=== PATIENT | male | born 1990 | race Caucasian/White ===

== ENCOUNTER 2019-10-19 01:00 | Inpatient (IN) ==
[2019-10-19] MEDS ORDERED: SODIUM CHLORIDE 0.9% 1,000 ML IV STA ×3 (04:25→08:42)
[2019-10-19 05:33] LABS: Basophils % 0.6 % (0.0-0.8); Eosinophils % 0.4 % (0.00-10.9); Hematocrit 23.4 VOL% (42.0-52.0); Hemoglobin 8.3 GM/DL (14.0-18.0); Immature Granulocytes % 0.2 %; Immature Granulocytes Absolute 0.01 #; Lymphocytes # 1.9 10*3/uL (1.4-4.0); Lymphocytes % 35.8 % (21.2-54.2); Mean Corpuscular HGB Conc 35.5 GM/DL (32-36); Mean Corpuscular Volume 100.9 FL (87-102); Mean Platelet Volume 10.2 FL (9.6-12.0); Monocytes % 13.6 % (1.7-12.7); Neutrophils % 49.4 % (38.7-73.9); Platelet Count 222 T/CUMM (130-400); Red Blood Count 2.32 MC/CUMM (3.8-5.5); Red Cell Distribution Width 11.9 % (9.3-17.3); White Blood Count 5.3 T/CUMM (4-12)
[2019-10-19 06:12] LABS: Alanine Aminotransferase 19 U/L (16-61); Albumin 3.6 G/DL (3.4-5.0); Alkaline Phosphatase 67 U/L (45-117); Aspartate Amino Transferase 18 U/L (0-37); Blood Urea Nitrogen 114 MG/DL (7-18); Calcium 8.2 MG/DL (8.5-10.1); Estimated Glom Filtration Rate 8 ML/MIN; Glucose 92 MG/DL (74-106); Osmolality,Calculated 292.1 MOS/KG (273-304)
[2019-10-19 06:30] LABS: Apearance,Urine CLEAR (Clear); Bilirubin,Urine Negative (Negative); Blood, Urine Negative (Negative); Glucose,Urine (UA) Negative (Negative); Ketones,Urine Negative (Negative); Mucus,Urine Occasional /LPF (Occasional); Nitrite,Urine Negative (Negative); Protein,Urine 30 MG/DL; RBC,Urine 2 /HPF (0-4); Urine Color Straw (Yellow); Urine Specific Gravity 1.009 (1.001-1.035); Urine Urobilinogen < 2.0 EU/DL (0.2-1.0); WBC,Urine 2 /HPF (0-6)
[2019-10-19] MEDS ORDERED: PIPERACILLIN/TAZOBACTAM 3,375 MG in SODIUM CHLORIDE 0.9% 100 ML IV STA (07:17)
[2019-10-19 07:57] LABS: Barbiturates Screen,Urine Negative (Negative); Benzodiazepines Screen,Urine Negative (Negative); Cannabinoid Screen,Urine Negative (Negative); Opiate Screen,Urine Negative (Negative); Phencyclidine Screen,Urine Negative (Negative)
[2019-10-19] MEDS ORDERED: ACETAMINOPHEN 325 MG TABLET PO PRN (08:23)
[2019-10-19] MEDS ORDERED: ONDANSETRON 4 MG/2 ML VIAL IV PRN (08:23)
[2019-10-19] MEDS ORDERED: PANTOPRAZOLE 40 MG TABLET PO SCH (09:00)
[2019-10-19] MEDS: SODIUM CHLOR 0.9% KCL 40 MEQ 40 MEQ/1,000 ML BAG IV SCH ×2 (10:29→21:00)
[2019-10-19 10:55] LABS: % Iron Saturation 20.3 % (18-50)
[2019-10-19 17:27] LABS: Calcium 7.9 MG/DL (8.5-10.1); Osmolality,Calculated 297.4 MOS/KG (273-304)
[2019-10-19] MEDS: PANTOPRAZOLE 40 MG VIAL IV SCH (20:59)
[2019-10-20 05:48] LABS: Calcium 8.5 MG/DL (8.5-10.1); Osmolality,Calculated 298.1 MOS/KG (273-304); Thyroid Stimulating Hormone 1.09 uIU/ml (0.358-3.74)
[2019-10-20 06:22] LABS: Basophils % 0.7 % (0.0-0.8); Eosinophils # 0.1 10*3/uL (0.0-0.87); Eosinophils % 2.8 % (0.00-10.9); Hematocrit 20.5 VOL% (42.0-52.0); Hemoglobin 7.1 GM/DL (14.0-18.0); Immature Granulocytes % 0.5 %; Immature Granulocytes Absolute 0.02 #; Lymphocytes # 1.6 10*3/uL (1.4-4.0); Mean Corpuscular HGB Conc 34.6 GM/DL (32-36); Mean Corpuscular Volume 100.5 FL (87-102); Mean Platelet Volume 10.9 FL (9.6-12.0); Monocytes % 10.8 % (1.7-12.7); Neutrophils % 48.2 % (38.7-73.9); Platelet Count 188 T/CUMM (130-400); Red Blood Count 2.04 MC/CUMM (3.8-5.5); Red Cell Distribution Width 11.6 % (9.3-17.3); White Blood Count 4.4 T/CUMM (4-12)
[2019-10-20] MEDS: PANTOPRAZOLE 40 MG VIAL IV SCH ×2 (08:30→20:15)
[2019-10-20] MEDS ORDERED: EPOETIN ALFA 10,000 UNIT/1 ML VIAL SUBCUT ONE (10:10)
[2019-10-20 13:07] LABS: Hematocrit 21.1 VOL% (42.0-52.0); Hemoglobin 7.4 GM/DL (14.0-18.0)
[2019-10-20] MEDS: SODIUM CHLOR 0.9% KCL 40 MEQ 40 MEQ/1,000 ML BAG IV SCH ×2 (14:30→22:10)
[2019-10-20] MEDS ORDERED: IRON SUCROSE 300 MG in SODIUM CHLORIDE 0.9% 100 ML IV ONE (15:00)
[2019-10-20 16:22] LABS: Hematocrit 22.2 VOL% (42.0-52.0); Hemoglobin 7.6 GM/DL (14.0-18.0)
[2019-10-21] MEDS: SODIUM CHLOR 0.9% KCL 40 MEQ 40 MEQ/1,000 ML BAG IV SCH ×2 (04:49→17:28)
[2019-10-21 05:28] LABS: Basophils % 0.9 % (0.0-0.8); Eosinophils % 0.4 % (0.00-10.9); Hematocrit 19.8 VOL% (42.0-52.0); Hemoglobin 6.8 GM/DL (14.0-18.0); Lymphocytes # 1.3 10*3/uL (1.4-4.0); Lymphocytes % 29.9 % (21.2-54.2); Mean Corpuscular HGB Conc 34.3 GM/DL (32-36); Mean Corpuscular Volume 102.6 FL (87-102); Mean Platelet Volume 10.8 FL (9.6-12.0); Monocytes % 10.1 % (1.7-12.7); Neutrophils % 58.7 % (38.7-73.9); Platelet Count 182 T/CUMM (130-400); Red Blood Count 1.93 MC/CUMM (3.8-5.5); Red Cell Distribution Width 11.7 % (9.3-17.3); White Blood Count 4.5 T/CUMM (4-12)
[2019-10-21 05:48] LABS: Calcium 8.8 MG/DL (8.5-10.1); Osmolality,Calculated 301.3 MOS/KG (273-304)
[2019-10-21] MEDS ORDERED: SODIUM CHLORIDE 0.9% 1,000 ML IV PRN (07:32)
[2019-10-21] MEDS ORDERED: COSYNTROPIN 0.25 MG VIAL IV ONE (08:00)
[2019-10-21] MEDS: PANTOPRAZOLE 40 MG VIAL IV SCH ×2 (08:41→21:05)
[2019-10-21] MEDS ORDERED: LIDOCAINE 2% 5 ML VIAL ONE (10:00)
[2019-10-21] MEDS ORDERED: PROPOFOL 200 MG/20 ML VIAL IV ONE (10:00)
[2019-10-21] MEDS ORDERED: BISACODYL 5 MG TABLET PO ONE (12:00)
[2019-10-21 12:43] LABS: Hematocrit 24.5 VOL% (42.0-52.0); Hemoglobin 8.2 GM/DL (14.0-18.0)
[2019-10-21] MEDS ORDERED: POLYETHYLENE GLYCOL POWDER 255 GM BOTTLE PO ONE (15:00)
[2019-10-21] MEDS ORDERED: MAGNESIUM CITRATE 300 ML BOTTLE PO ONE (21:00)
[2019-10-22] MEDS: SODIUM CHLOR 0.9% KCL 40 MEQ 40 MEQ/1,000 ML BAG IV SCH ×3 (01:07→17:34)
[2019-10-22 05:39] LABS: PT Patient Result 10.4 SECS (9.6-12.2)
[2019-10-22 06:00] LABS: Calcium 9.1 MG/DL (8.5-10.1); Osmolality,Calculated 302.6 MOS/KG (273-304)
[2019-10-22 06:03] LABS: Basophils % 0.7 % (0.0-0.8); Eosinophils # 0.1 10*3/uL (0.0-0.87); Eosinophils % 2.3 % (0.00-10.9); Hematocrit 23.5 VOL% (42.0-52.0); Immature Granulocytes % 0.5 %; Immature Granulocytes Absolute 0.03 #; Lymphocytes # 1.5 10*3/uL (1.4-4.0); Lymphocytes % 25.1 % (21.2-54.2); Mean Corpuscular Volume 102.2 FL (87-102); Mean Platelet Volume 10.6 FL (9.6-12.0); Monocytes % 6.9 % (1.7-12.7); Neutrophils % 64.5 % (38.7-73.9); Platelet Count 176 T/CUMM (130-400); Red Cell Distribution Width 13.1 % (9.3-17.3); White Blood Count 6.1 T/CUMM (4-12)
[2019-10-22] MEDS ORDERED: LACTATED RINGERS 1,000 ML IV SCH ×2 (08:00→10:30)
[2019-10-22] MEDS ORDERED: IRON SUCROSE 300 MG in SODIUM CHLORIDE 0.9% 100 ML IV ONE (08:07)
[2019-10-22] MEDS ORDERED: POLYMYXIN/TRIMETHOPRIM OPH SOL 10 ML BOTTLE RIGHT EYE SCH (09:00)
[2019-10-22] MEDS ORDERED: LIDOCAINE 2% 5 ML VIAL ONE (10:00)
[2019-10-22] MEDS ORDERED: PROPOFOL 200 MG/20 ML VIAL IV ONE (10:00)
[2019-10-22] MEDS ORDERED: NICOTINE 21 MG/24 HR PATCH TRANSDERM PRN (10:21)
[2019-10-22 10:39] LABS: % Iron Saturation 32.9 % (18-50); Ferritin 323.1 ng/ml (26-388)
[2019-10-22 11:40] LABS: Hepatitis B Core IgM Quant < 0.05 Index; Hepatitis B Surface Ag Quant < 0.10 Index; Hepatitis B Surface Ag Result Negative (Negative); Hepatitis C Virus Ab Result Negative (Negative)
[2019-10-22 12:44] LABS: HIV Antigen/Antibody Result Nonreactive (Nonreactive)
[2019-10-22] MEDS: PANTOPRAZOLE 40 MG VIAL IV SCH ×2 (12:46→20:27)
[2019-10-22] MEDS: POLYMYXIN/TRIMETHOPRIM OPH SOL 10 ML BOTTLE BOTH EYES SCH ×4 (12:46→20:27)
[2019-10-22] MEDS ORDERED: PIPERACILLIN/TAZOBACTAM 2,250 MG in SODIUM CHLORIDE 0.9% 100 ML IV SCH (13:00)
[2019-10-22 13:04] LABS: Protein/Creatinine Ratio,Urine 0.9 RATIO
[2019-10-22] MEDS: PIPERACILLIN/TAZOBACTAM 3,375 MG in SODIUM CHLORIDE 0.9% 100 ML IV SCH (15:30)
[2019-10-23] MEDS: PIPERACILLIN/TAZOBACTAM 3,375 MG in SODIUM CHLORIDE 0.9% 100 ML IV SCH ×2 (03:48→13:04)
[2019-10-23] MEDS: SODIUM CHLOR 0.9% KCL 40 MEQ 40 MEQ/1,000 ML BAG IV SCH ×3 (03:49→12:40)
[2019-10-23 06:18] LABS: Basophils % 0.5 % (0.0-0.8); Eosinophils # 0.2 10*3/uL (0.0-0.87); Eosinophils % 2.7 % (0.00-10.9); Hematocrit 21.9 VOL% (42.0-52.0); Hemoglobin 7.3 GM/DL (14.0-18.0); Immature Granulocytes % 0.2 %; Immature Granulocytes Absolute 0.01 #; Lymphocytes # 1.2 10*3/uL (1.4-4.0); Lymphocytes % 21.7 % (21.2-54.2); Mean Corpuscular HGB Conc 33.3 GM/DL (32-36); Mean Corpuscular Volume 103.3 FL (87-102); Mean Platelet Volume 10.7 FL (9.6-12.0); Monocytes % 7.4 % (1.7-12.7); Neutrophils % 67.5 % (38.7-73.9); Platelet Count 156 T/CUMM (130-400); Red Blood Count 2.12 MC/CUMM (3.8-5.5); White Blood Count 5.5 T/CUMM (4-12)
[2019-10-23 06:49] LABS: Albumin 2.6 G/DL (3.4-5.0); Bilirubin,Total 0.5 MG/DL (0.2-1.0); Calcium 9.1 MG/DL (8.5-10.1); Osmolality,Calculated 301.4 MOS/KG (273-304); Total Protein 5.9 G/DL (6.4-8.3)
[2019-10-23] MEDS ORDERED: IRON SUCROSE 300 MG in SODIUM CHLORIDE 0.9% 100 ML IV ONE (08:56)
[2019-10-23] MEDS ORDERED: EPOETIN ALFA 10,000 UNIT/1 ML VIAL SUBCUT ONE (08:57)
[2019-10-23] MEDS: POLYMYXIN/TRIMETHOPRIM OPH SOL 10 ML BOTTLE BOTH EYES SCH (10:41)
[2019-10-23] MEDS: PANTOPRAZOLE 40 MG VIAL IV SCH (10:42)
[2019-10-23] MEDS ORDERED: BISACODYL 5 MG TABLET PO PRN (13:12)
[2019-10-23] MEDS ORDERED: traZODone 50 MG TABLET PO PRN (13:12)
[2019-10-23] MEDS ORDERED: diphenhydrAMINE CAP 25 MG CAPSULE PO PRN (15:48)
[2019-10-23] MEDS ORDERED: rOPINIRole 0.25 MG TABLET PO SCH (21:00)
[2019-10-24] MEDS: PIPERACILLIN/TAZOBACTAM 3,375 MG in SODIUM CHLORIDE 0.9% 100 ML IV SCH (02:31)
[2019-10-24 05:42] LABS: Basophils # 0.1 10*3/uL (0.0-0.2); Eosinophils # 0.2 10*3/uL (0.0-0.87); Eosinophils % 3.2 % (0.00-10.9); Hematocrit 22.7 VOL% (42.0-52.0); Hemoglobin 7.5 GM/DL (14.0-18.0); Immature Granulocytes % 0.4 %; Immature Granulocytes Absolute 0.02 #; Lymphocytes # 1.2 10*3/uL (1.4-4.0); Lymphocytes % 24.7 % (21.2-54.2); Mean Corpuscular Volume 103.7 FL (87-102); Mean Platelet Volume 10.7 FL (9.6-12.0); Monocytes % 9.1 % (1.7-12.7); Neutrophils % 61.6 % (38.7-73.9); Platelet Count 161 T/CUMM (130-400); Red Blood Count 2.19 MC/CUMM (3.8-5.5); Red Cell Distribution Width 12.9 % (9.3-17.3); White Blood Count 4.9 T/CUMM (4-12)
[2019-10-24 05:49] LABS: Calcium 9.8 MG/DL (8.5-10.1); Osmolality,Calculated 295.7 MOS/KG (273-304)
[2019-10-24] MEDS ORDERED: DIAZEPAM 5 MG TABLET PO ONE (07:30)
[2019-10-24] MEDS ORDERED: PANTOPRAZOLE 40 MG TABLET PO SCH (09:00)
[2019-10-24 09:32] LABS: Folate 9.5 NG/ML (5.4-24.0)
[2019-10-24 12:57] VITALS: BP 99/57
[2019-10-25 23:46] LABS: IgA Serum (MAYO) 261 mg/dL (61 - 356)
[2019-10-26 00:40] LABS: Astrovirus Negative (Negative); Cryptosporidium species Negative (Negative); Cyclospora cayetanensis Negative (Negative); Entamoeba histolytica Negative (Negative); Enteropathogenic E.coli (EPEC) Negative (Negative); Enterotoxigenic E. coli (ETEC) Negative (Negative); Norovirus GI/GII Negative (Negative); Plesiomonas shigelloides Negative (Negative); Salmonella species Negative (Negative); Sapovirus Negative (Negative); Shiga toxin producing E. coli Negative (Negative); Shigella/Enteroinvasive E.coli Negative (Negative); Specimen Source STOOL; Vibrio cholerae Negative (Negative); Yersinia enterocolitica Negative (Negative)
[2019-10-31 11:43] LABS: Tissue Transglutaminase IgA Ab < 1.2 U/mL
== END 2019-10-24 15:40 | disposition home or self-care (01) | DRG 682 ==
LOC: N.ED 01:00 → SUATTDRO 08:23 → N.EDINP 08:23 → N.5E 08:57
PROVIDERS: ADMIT Internal Medicine; ATTEND Family Medicine
PROC: COLONBX (2019-10-22 08:05)

== ENCOUNTER 2019-11-25 11:08 | Inpatient (IN) ==
[2019-11-25] MEDS ORDERED: PROMETHAZINE 25 MG/1 ML VIAL IM PRN (13:17)
[2019-11-25] MEDS ORDERED: ONDANSETRON 4 MG/2 ML VIAL IV PRN (13:17)
[2019-11-25] MEDS ORDERED: ACETAMINOPHEN 325 MG TABLET PO PRN (13:17)
[2019-11-25] MEDS ORDERED: PANTOPRAZOLE 40 MG TABLET PO SCH (13:30)
[2019-11-25] MEDS ORDERED: POTASSIUM CHLORIDE RIDER 10 MEQ in PREMIX 1 EACH IV PRN (13:47)
[2019-11-25] MEDS ORDERED: SODIUM CHLORIDE 0.9% 1,000 ML IV ONE (13:47)
[2019-11-25] MEDS ORDERED: traZODone 50 MG TABLET PO PRN (13:49)
[2019-11-25] MEDS ORDERED: SODIUM CHLORIDE 0.9% 1,000 ML IV SCH (14:00)
[2019-11-25 14:17] LABS: Basophils % 0.7 % (0.0-0.8); Eosinophils # 0.1 10*3/uL (0.0-0.87); Eosinophils % 1.6 % (0.00-10.9); Immature Granulocytes % 0.4 %; Immature Granulocytes Absolute 0.02 #; Lymphocytes # 1.5 10*3/uL (1.4-4.0); Lymphocytes % 26.6 % (21.2-54.2); Mean Corpuscular HGB Conc 34.6 GM/DL (32-36); Mean Corpuscular Volume 98.5 FL (87-102); Monocytes % 11.4 % (1.7-12.7); Neutrophils % 59.3 % (38.7-73.9); Platelet Count 200 T/CUMM (130-400); Red Blood Count 2.64 MC/CUMM (3.8-5.5); Red Cell Distribution Width 11.9 % (9.3-17.3); White Blood Count 5.5 T/CUMM (4-12)
[2019-11-25 15:13] LABS: Alanine Aminotransferase 22 U/L (16-61); Albumin 3.9 G/DL (3.4-5.0); Alkaline Phosphatase 83 U/L (45-117); Aspartate Amino Transferase 18 U/L (0-37); Blood Urea Nitrogen 104 MG/DL (7-18); Calcium 9.5 MG/DL (8.5-10.1); Estimated Glom Filtration Rate 7 ML/MIN; Glucose 98 MG/DL (74-106); Osmolality,Calculated 292.8 MOS/KG (273-304)
[2019-11-25] MEDS ORDERED: POTASSIUM CHLORIDE INJ 20 MEQ in SODIUM CHLORIDE 0.9% 1,000 ML IV SCH (15:55)
[2019-11-25] MEDS: POTASSIUM CHLORIDE RIDER 10 MEQ in PREMIX 1 EACH IV SCH ×4 (16:14→22:19)
[2019-11-25] MEDS: SODIUM CHLOR 0.9% KCL 20 MEQ 20 MEQ/1,000 ML BAG IV SCH (16:14)
[2019-11-25] MEDS: ENOXAPARIN 40 MG/0.4 ML SYRINGE SUBCUT SCH (20:11)
[2019-11-25] MEDS ORDERED: rOPINIRole 0.25 MG TABLET PO SCH (21:00)
[2019-11-26] MEDS: SODIUM CHLOR 0.9% KCL 20 MEQ 20 MEQ/1,000 ML BAG IV SCH ×3 (01:50→19:02)
[2019-11-26 06:06] LABS: Blood Urea Nitrogen 96 MG/DL (7-18); Calcium 9.2 MG/DL (8.5-10.1); Estimated Glom Filtration Rate 7 ML/MIN; Glucose 151 MG/DL (74-106); Osmolality,Calculated 296.5 MOS/KG (273-304)
[2019-11-26] MEDS ORDERED: EPOETIN ALFA 10,000 UNIT/1 ML VIAL SUBCUT ONE (08:02)
[2019-11-26] MEDS: POTASSIUM CHLORIDE 20 MEQ TABLET PO SCH ×3 (09:40→15:34)
[2019-11-26] MEDS: PANTOPRAZOLE 40 MG TABLET PO SCH (09:40)
[2019-11-26] MEDS: NICOTINE 21 MG/24 HR PATCH TRANSDERM SCH (15:29)
[2019-11-26] MEDS: ENOXAPARIN 40 MG/0.4 ML SYRINGE SUBCUT SCH (21:56)
[2019-11-26] MEDS: rOPINIRole 0.25 MG TABLET PO SCH (21:57)
[2019-11-27] MEDS: SODIUM CHLOR 0.9% KCL 20 MEQ 20 MEQ/1,000 ML BAG IV SCH ×2 (03:01→13:49)
[2019-11-27 06:01] LABS: Calcium 9.5 MG/DL (8.5-10.1)
[2019-11-27 07:36] LABS: VBG Base Excess 16.7 MEQ/L (0-4); VBG HCO3 40.7 MEQ/L (24-28); VBG Oxygen Saturation 99.7 %; VBG PCO2 42.7 MMHG (41-51); VBG PH 7.586
[2019-11-27] MEDS: POTASSIUM CHLORIDE 20 MEQ TABLET PO SCH ×2 (08:54→11:53)
[2019-11-27] MEDS: NICOTINE 21 MG/24 HR PATCH TRANSDERM SCH (08:55)
[2019-11-27] MEDS: PANTOPRAZOLE 40 MG TABLET PO SCH (11:53)
[2019-11-27] MEDS: predniSONE 20 MG TABLET PO SCH (17:01)
[2019-11-27] MEDS: aMILoride 5 MG TABLET PO SCH (17:02)
[2019-11-27] MEDS ORDERED: ZALEPLON 5 MG CAPSULE PO SCH (21:00)
[2019-11-27] MEDS: rOPINIRole 0.25 MG TABLET PO SCH (21:18)
[2019-11-27] MEDS: ENOXAPARIN 40 MG/0.4 ML SYRINGE SUBCUT SCH (21:18)
[2019-11-28] MEDS: SODIUM CHLOR 0.9% KCL 20 MEQ 20 MEQ/1,000 ML BAG IV SCH ×4 (00:50→20:54)
[2019-11-28 05:31] LABS: Calcium 9.3 MG/DL (8.5-10.1); Osmolality,Calculated 296.4 MOS/KG (273-304)
[2019-11-28] MEDS ORDERED: diphenhydrAMINE CAP 50 MG CAPSULE PO PRN (08:08)
[2019-11-28] MEDS: PANTOPRAZOLE 40 MG TABLET PO SCH (08:20)
[2019-11-28] MEDS: predniSONE 20 MG TABLET PO SCH (08:20)
[2019-11-28] MEDS: POTASSIUM CHLORIDE 20 MEQ TABLET PO SCH ×3 (08:21→16:04)
[2019-11-28] MEDS: NICOTINE 21 MG/24 HR PATCH TRANSDERM SCH (08:21)
[2019-11-28] MEDS: aMILoride 5 MG TABLET PO SCH (11:36)
[2019-11-28] MEDS: ENOXAPARIN 40 MG/0.4 ML SYRINGE SUBCUT SCH (20:55)
[2019-11-28] MEDS: diphenhydrAMINE CAP 25 MG CAPSULE PO SCH (20:55)
[2019-11-28] MEDS: MIRTAZAPINE 15 MG TABLET PO SCH (20:55)
[2019-11-28] MEDS: MELATONIN 3 MG TABLET PO SCH (20:55)
[2019-11-28] MEDS: rOPINIRole 0.25 MG TABLET PO SCH (20:55)
[2019-11-28] MEDS: ALUM/MAG/SIMETH/LIDO VISC 1:1 30 ML BOTTLE PO PRN (22:29)
[2019-11-29 05:00] LABS: Basophils % 0.6 % (0.0-0.8); Eosinophils # 0.2 10*3/uL (0.0-0.87); Eosinophils % 3.4 % (0.00-10.9); Hematocrit 23.8 VOL% (42.0-52.0); Hemoglobin 7.9 GM/DL (14.0-18.0); Immature Granulocytes % 0.4 %; Immature Granulocytes Absolute 0.02 #; Mean Corpuscular HGB Conc 33.2 GM/DL (32-36); Mean Corpuscular Volume 102.6 FL (87-102); Mean Platelet Volume 10.1 FL (9.6-12.0); Monocytes % 7.4 % (1.7-12.7); Neutrophils % 48.2 % (38.7-73.9); Platelet Count 161 T/CUMM (130-400); Red Blood Count 2.32 MC/CUMM (3.8-5.5); Red Cell Distribution Width 11.9 % (9.3-17.3)
[2019-11-29] MEDS: SODIUM CHLOR 0.9% KCL 20 MEQ 20 MEQ/1,000 ML BAG IV SCH ×2 (05:23→22:06)
[2019-11-29 05:29] LABS: Calcium 9.5 MG/DL (8.5-10.1); Osmolality,Calculated 294.3 MOS/KG (273-304)
[2019-11-29] MEDS ORDERED: SODIUM CHLORIDE 0.9% 1,000 ML IV PRN (07:39)
[2019-11-29] MEDS: predniSONE 20 MG TABLET PO SCH (08:40)
[2019-11-29] MEDS: aMILoride 5 MG TABLET PO SCH (08:40)
[2019-11-29] MEDS: PANTOPRAZOLE 40 MG TABLET PO SCH (08:40)
[2019-11-29] MEDS: NICOTINE 21 MG/24 HR PATCH TRANSDERM SCH (08:41)
[2019-11-29] MEDS ORDERED: EPOETIN ALFA 10,000 UNIT/1 ML VIAL SUBCUT ONE (10:20)
[2019-11-29] MEDS ORDERED: IRON SUCROSE 300 MG in SODIUM CHLORIDE 0.9% 100 ML IV ONE (10:48)
[2019-11-29 16:47] LABS: Hematocrit 30.6 VOL% (42.0-52.0); Hemoglobin 10.3 GM/DL (14.0-18.0)
[2019-11-29] MEDS: MELATONIN 3 MG TABLET PO SCH (20:33)
[2019-11-29] MEDS: diphenhydrAMINE CAP 25 MG CAPSULE PO SCH (20:33)
[2019-11-29] MEDS: ENOXAPARIN 40 MG/0.4 ML SYRINGE SUBCUT SCH (20:33)
[2019-11-29] MEDS: ALUM/MAG/SIMETH/LIDO VISC 1:1 30 ML BOTTLE PO PRN (20:33)
[2019-11-29] MEDS: rOPINIRole 0.25 MG TABLET PO SCH (20:34)
[2019-11-29] MEDS: MIRTAZAPINE 15 MG TABLET PO SCH (20:34)
[2019-11-30 05:26] LABS: Basophils % 0.6 % (0.0-0.8); Eosinophils # 0.2 10*3/uL (0.0-0.87); Eosinophils % 4.5 % (0.00-10.9); Hematocrit 28.3 VOL% (42.0-52.0); Hemoglobin 9.5 GM/DL (14.0-18.0); Lymphocytes # 2.1 10*3/uL (1.4-4.0); Lymphocytes % 39.1 % (21.2-54.2); Mean Corpuscular HGB Conc 33.6 GM/DL (32-36); Mean Corpuscular Volume 100.7 FL (87-102); Mean Platelet Volume 10.7 FL (9.6-12.0); Monocytes % 9.6 % (1.7-12.7); Neutrophils % 46.2 % (38.7-73.9); Platelet Count 179 T/CUMM (130-400); Red Blood Count 2.81 MC/CUMM (3.8-5.5); Red Cell Distribution Width 13.5 % (9.3-17.3); White Blood Count 5.3 T/CUMM (4-12)
[2019-11-30 05:36] LABS: Calcium 9.2 MG/DL (8.5-10.1); Osmolality,Calculated 295.1 MOS/KG (273-304)
[2019-11-30] MEDS: SODIUM CHLOR 0.9% KCL 20 MEQ 20 MEQ/1,000 ML BAG IV SCH ×2 (07:56→21:55)
[2019-11-30] MEDS: predniSONE 20 MG TABLET PO SCH (08:43)
[2019-11-30] MEDS: PANTOPRAZOLE 40 MG TABLET PO SCH (08:43)
[2019-11-30] MEDS: aMILoride 5 MG TABLET PO SCH (08:43)
[2019-11-30] MEDS: NICOTINE 21 MG/24 HR PATCH TRANSDERM SCH (08:44)
[2019-11-30] MEDS ORDERED: IRON SUCROSE 300 MG in SODIUM CHLORIDE 0.9% 100 ML IV ONE (10:48)
[2019-11-30] MEDS: diphenhydrAMINE CAP 25 MG CAPSULE PO SCH (21:49)
[2019-11-30] MEDS: MIRTAZAPINE 15 MG TABLET PO SCH (21:51)
[2019-11-30] MEDS: ENOXAPARIN 30 MG/0.3 ML SYRINGE SUBCUT SCH (21:51)
[2019-11-30] MEDS: MELATONIN 3 MG TABLET PO SCH (21:51)
[2019-11-30] MEDS: rOPINIRole 0.25 MG TABLET PO SCH (21:51)
[2019-12-01] MEDS: SODIUM CHLOR 0.9% KCL 20 MEQ 20 MEQ/1,000 ML BAG IV SCH (07:00)
[2019-12-01 09:30] LABS: Calcium 9.7 MG/DL (8.5-10.1)
[2019-12-01] MEDS: NICOTINE 21 MG/24 HR PATCH TRANSDERM SCH (09:42)
[2019-12-01] MEDS: PANTOPRAZOLE 40 MG TABLET PO SCH (09:43)
[2019-12-01] MEDS: aMILoride 5 MG TABLET PO SCH (09:43)
[2019-12-01] MEDS: predniSONE 20 MG TABLET PO SCH (09:43)
[2019-12-01] MEDS: SODIUM CHLORIDE 0.9% 1,000 ML IV SCH (16:35)
[2019-12-01] MEDS: MELATONIN 3 MG TABLET PO SCH (21:17)
[2019-12-01] MEDS: ENOXAPARIN 30 MG/0.3 ML SYRINGE SUBCUT SCH (21:17)
[2019-12-01] MEDS: rOPINIRole 0.25 MG TABLET PO SCH (21:18)
[2019-12-01] MEDS: diphenhydrAMINE CAP 25 MG CAPSULE PO SCH (21:18)
[2019-12-01] MEDS: MIRTAZAPINE 15 MG TABLET PO SCH (21:18)
[2019-12-02 04:04] LABS: Basophils % 0.4 % (0.0-0.8); Eosinophils # 0.2 10*3/uL (0.0-0.87); Eosinophils % 2.6 % (0.00-10.9); Hematocrit 30.8 VOL% (42.0-52.0); Hemoglobin 10.3 GM/DL (14.0-18.0); Immature Granulocytes % 0.3 %; Immature Granulocytes Absolute 0.02 #; Lymphocytes # 2.3 10*3/uL (1.4-4.0); Lymphocytes % 31.2 % (21.2-54.2); Mean Corpuscular HGB Conc 33.4 GM/DL (32-36); Mean Corpuscular Volume 101.7 FL (87-102); Monocytes % 4.5 % (1.7-12.7); Platelet Count 184 T/CUMM (130-400); Red Blood Count 3.03 MC/CUMM (3.8-5.5); Red Cell Distribution Width 12.9 % (9.3-17.3); White Blood Count 7.4 T/CUMM (4-12)
[2019-12-02 04:22] LABS: Calcium 9.2 MG/DL (8.5-10.1); Osmolality,Calculated 286.4 MOS/KG (273-304)
[2019-12-02] MEDS: SODIUM CHLORIDE 0.9% 1,000 ML IV SCH ×2 (06:28→16:30)
[2019-12-02] MEDS: PANTOPRAZOLE 40 MG TABLET PO SCH (08:11)
[2019-12-02] MEDS: predniSONE 20 MG TABLET PO SCH (08:11)
[2019-12-02] MEDS: NICOTINE 21 MG/24 HR PATCH TRANSDERM SCH (08:11)
[2019-12-02] MEDS: aMILoride 5 MG TABLET PO SCH (08:11)
[2019-12-02] MEDS ORDERED: ceFAZolin 1,000 MG in SYRINGE 1 EACH IV ONE (10:52)
[2019-12-02] MEDS: MIRTAZAPINE 15 MG TABLET PO SCH (21:26)
[2019-12-02] MEDS: MELATONIN 3 MG TABLET PO SCH (21:27)
[2019-12-02] MEDS: diphenhydrAMINE CAP 25 MG CAPSULE PO SCH (21:27)
[2019-12-02] MEDS: rOPINIRole 0.25 MG TABLET PO SCH (21:27)
[2019-12-03] MEDS: SODIUM CHLORIDE 0.9% 1,000 ML IV SCH ×3 (04:36→22:40)
[2019-12-03 05:53] LABS: Basophils % 0.6 % (0.0-0.8); Eosinophils # 0.2 10*3/uL (0.0-0.87); Eosinophils % 3.5 % (0.00-10.9); Hemoglobin 9.7 GM/DL (14.0-18.0); Immature Granulocytes % 0.2 %; Immature Granulocytes Absolute 0.01 #; Lymphocytes # 2.1 10*3/uL (1.4-4.0); Lymphocytes % 39.4 % (21.2-54.2); Mean Corpuscular HGB Conc 33.4 GM/DL (32-36); Mean Platelet Volume 10.2 FL (9.6-12.0); Monocytes % 7.8 % (1.7-12.7); Neutrophils % 48.5 % (38.7-73.9); Platelet Count 205 T/CUMM (130-400); Red Blood Count 2.87 MC/CUMM (3.8-5.5); Red Cell Distribution Width 12.9 % (9.3-17.3); White Blood Count 5.4 T/CUMM (4-12)
[2019-12-03 06:18] LABS: Calcium 9.2 MG/DL (8.5-10.1); Osmolality,Calculated 292.8 MOS/KG (273-304)
[2019-12-03] MEDS ORDERED: ceFAZolin 1,000 MG in SYRINGE 1 EACH IV ONE (08:00)
[2019-12-03] MEDS: aMILoride 5 MG TABLET PO SCH (13:04)
[2019-12-03] MEDS: PANTOPRAZOLE 40 MG TABLET PO SCH (13:04)
[2019-12-03] MEDS: predniSONE 20 MG TABLET PO SCH (13:04)
[2019-12-03] MEDS ORDERED: HEPARIN 5,000 UNIT/1 ML VIAL ONE (14:00)
[2019-12-03] MEDS ORDERED: LIDOCAINE 1%/EPI INJ 20 ML VIAL ONE (14:00)
[2019-12-03] MEDS: predniSONE 10 MG TABLET PO SCH (14:58)
[2019-12-03] MEDS: NICOTINE 21 MG/24 HR PATCH TRANSDERM SCH ×2 (14:58→18:46)
[2019-12-03] MEDS ORDERED: DEXMEDETOMIDINE 200 MCG/2 ML VIAL ONE (16:23)
[2019-12-03] MEDS ORDERED: propofoL 200 MG/20 ML VIAL IV ONE (16:23)
[2019-12-03] MEDS ORDERED: fentaNYL 100 MCG/2 ML VIAL ONE (16:24)
[2019-12-03] MEDS ORDERED: GLYCOPYRROLATE 0.4 MG/2 ML VIAL ONE (16:24)
[2019-12-04] MEDS: rOPINIRole 0.25 MG TABLET PO SCH ×2 (00:11→22:39)
[2019-12-04] MEDS: MIRTAZAPINE 15 MG TABLET PO SCH ×2 (00:17→22:40)
[2019-12-04] MEDS: diphenhydrAMINE CAP 25 MG CAPSULE PO SCH ×2 (00:17→22:39)
[2019-12-04] MEDS: MELATONIN 3 MG TABLET PO SCH ×2 (00:17→22:39)
[2019-12-04] MEDS ORDERED: BISACODYL 5 MG TABLET PO PRN (05:46)
[2019-12-04] MEDS: PANTOPRAZOLE 40 MG TABLET PO SCH (08:22)
[2019-12-04] MEDS: predniSONE 10 MG TABLET PO SCH (08:22)
[2019-12-04] MEDS: NICOTINE 21 MG/24 HR PATCH TRANSDERM SCH (08:22)
[2019-12-04] MEDS: aMILoride 5 MG TABLET PO SCH (08:22)
[2019-12-04] MEDS ORDERED: EPOETIN ALFA 2,000 UNIT/1 ML VIAL IV PRN (11:27)
[2019-12-04 11:38] LABS: Hepatitis B Core IgM Quant 0.07 Index; Hepatitis B Surface Ag Quant < 0.10 Index; Hepatitis B Surface Ag Result Negative (Negative); Hepatitis C Virus Ab Quant 0.07 Index; Hepatitis C Virus Ab Result Negative (Negative)
[2019-12-04] MEDS ORDERED: HEPARIN 10,000 UNIT/10 ML VIAL IV SCH (12:00)
[2019-12-04] MEDS: SODIUM CHLORIDE 0.9% 1,000 ML IV SCH (13:09)
[2019-12-04] MEDS: oxyCODONE/ACETAMINOPHEN 5-325 MG TABLET PO PRN ×2 (17:31→22:40)
[2019-12-05] MEDS: oxyCODONE/ACETAMINOPHEN 5-325 MG TABLET PO PRN ×2 (04:27→08:24)
[2019-12-05 07:20] LABS: Basophils % 0.9 % (0.0-0.8); Eosinophils # 0.2 10*3/uL (0.0-0.87); Eosinophils % 4.7 % (0.00-10.9); Hematocrit 29.4 VOL% (42.0-52.0); Hemoglobin 9.7 GM/DL (14.0-18.0); Immature Granulocytes % 0.2 %; Immature Granulocytes Absolute 0.01 #; Lymphocytes # 1.8 10*3/uL (1.4-4.0); Lymphocytes % 40.8 % (21.2-54.2); Mean Corpuscular Volume 102.8 FL (87-102); Mean Platelet Volume 9.9 FL (9.6-12.0); Monocytes % 10.7 % (1.7-12.7); Neutrophils % 42.7 % (38.7-73.9); Platelet Count 186 T/CUMM (130-400); Red Blood Count 2.86 MC/CUMM (3.8-5.5); Red Cell Distribution Width 13.5 % (9.3-17.3); White Blood Count 4.5 T/CUMM (4-12)
[2019-12-05 07:51] LABS: Calcium 8.7 MG/DL (8.5-10.1); Osmolality,Calculated 280.4 MOS/KG (273-304)
[2019-12-05] MEDS: aMILoride 5 MG TABLET PO SCH (08:23)
[2019-12-05] MEDS: PANTOPRAZOLE 40 MG TABLET PO SCH (08:24)
[2019-12-05] MEDS: NICOTINE 21 MG/24 HR PATCH TRANSDERM SCH (08:24)
[2019-12-05] MEDS: predniSONE 10 MG TABLET PO SCH (08:24)
[2019-12-05 13:21] VITALS: BP 107/59
== END 2019-12-05 18:27 | disposition home or self-care (01) | DRG 674 ==
LOC: N.2W 11:33 → SUATTDRO 12:22
PROVIDERS: ADMIT Internal Medicine; ATTEND Internal Medicine

== ENCOUNTER 2020-12-09 23:32 | Observation (INO) ==
[2020-12-10] MEDS ORDERED: SODIUM CHLORIDE 0.9% 500 ML IV STA (00:05)
[2020-12-10] MEDS ORDERED: ONDANSETRON 4 MG/2 ML VIAL IV STA (00:05)
[2020-12-10 00:33] LABS: Basophils # 0.1 10*3/uL (0.0-0.2); Basophils % 1.2 % (0.0-0.8); Eosinophils # 0.1 10*3/uL (0.0-0.87); Eosinophils % 2.4 % (0.00-10.9); Hematocrit 31.2 VOL% (42.0-52.0); Hemoglobin 10.6 GM/DL (14.0-18.0); Immature Granulocytes % 0.3 %; Immature Granulocytes Absolute 0.02 #; Lymphocytes # 2.3 10*3/uL (1.4-4.0); Lymphocytes % 39.2 % (21.2-54.2); Mean Corpuscular Volume 104.7 FL (87-102); Mean Platelet Volume 10.2 FL (9.6-12.0); Monocytes % 8.2 % (1.7-12.7); Neutrophils % 48.7 % (38.7-73.9); Platelet Count 186 T/CUMM (130-400); Red Blood Count 2.98 MC/CUMM (3.8-5.5); Red Cell Distribution Width 12.7 % (9.3-17.3); White Blood Count 5.8 T/CUMM (4-12)
[2020-12-10 00:57] LABS: Alanine Aminotransferase 29 U/L (16-61); Albumin 3.6 G/DL (3.4-5.0); Alkaline Phosphatase 71 U/L (45-117); Amylase 90 U/L (25-115); Aspartate Amino Transferase 22 U/L (0-37); Bilirubin,Total < 0.39 MG/DL (0.2-1.0); Blood Urea Nitrogen 17 MG/DL (7-18); Calcium 8.4 MG/DL (8.5-10.1); Carbon Dioxide 35 MMOL/L (21-32); Estimated Glom Filtration Rate 25 ML/MIN; Glucose 72 MG/DL (74-106); Osmolality,Calculated 281.3 MOS/KG (273-304); Potassium 2.8 MMOL/L (3.5-5.1); Sodium 141 MMOL/L (136-145); Total Protein 6.8 G/DL (6.4-8.3); Troponin I < 0.015 NG/ML (0.00-0.045)
[2020-12-10 02:28] LABS: Bilirubin,Urine Negative (Negative); Blood, Urine Negative (Negative); Glucose,Urine (UA) Negative (Negative); Ketones,Urine Negative (Negative); Nitrite,Urine Negative (Negative); Protein,Urine 30 MG/DL; RBC,Urine 2 /HPF (0-4); Renal Epithelial Cells,Urine Occasional /HPF (<1); Urine Appearance CLEAR (Clear); Urine Color Straw (Yellow); Urine Specific Gravity 1.009 (1.001-1.035); Urine Urobilinogen < 2.0 EU/DL (0.2-1.0); WBC,Urine 6 /HPF (0-6)
[2020-12-10] MEDS ORDERED: DEXTROSE 50% 25 GM/50 ML VIAL IV PRN (02:34)
[2020-12-10] MEDS ORDERED: ACETAMINOPHEN 325 MG TABLET PO PRN (02:34)
[2020-12-10] MEDS ORDERED: GLUCAGON 1 MG VIAL IM PRN (02:34)
[2020-12-10] MEDS ORDERED: ONDANSETRON 4 MG/2 ML VIAL IV PRN (02:34)
[2020-12-10] MEDS ORDERED: NICOTINE 21 MG/24 HR PATCH TRANSDERM PRN (02:34)
[2020-12-10] MEDS ORDERED: SODIUM CHLORIDE 0.9% 500 ML IV ONE (02:34)
[2020-12-10] MEDS ORDERED: MORPHINE 4 MG/1 ML VIAL IV PRN (02:34)
[2020-12-10] MEDS ORDERED: POTASSIUM CHLORIDE 20 MEQ TABLET PO ONE ×2 (05:28→11:00)
[2020-12-10] MEDS ORDERED: POTASSIUM CHLORIDE 20 MEQ TABLET PO PRN (07:43)
[2020-12-10] MEDS ORDERED: POTASSIUM CHLORIDE INJ 40 MEQ in LACTATED RINGERS 1,000 ML IV SCH (08:30)
[2020-12-10 09:03] LABS: Calcium 8.3 MG/DL (8.5-10.1); Osmolality,Calculated 280.3 MOS/KG (273-304)
[2020-12-10 09:06] LABS: Albumin 3.2 G/DL (3.4-5.0); Bilirubin,Total 0.4 MG/DL (0.2-1.0); Calcium 8.5 MG/DL (8.5-10.1); Osmolality,Calculated 276.5 MOS/KG (273-304); Total Protein 6.3 G/DL (6.4-8.3)
[2020-12-10] MEDS ORDERED: LIDOCAINE/PRILOCAINE CREAM 5 GM TUBE TOP ONE (11:06)
[2020-12-10] MEDS ORDERED: SEVELAMER CARBONATE POWDER 2.4 GM PACK PO SCH (11:30)
[2020-12-10] MEDS: POTASSIUM CHLORIDE 8 MEQ CAPSULE PO SCH ×2 (14:23→17:38)
[2020-12-10] MEDS: SODIUM CHLORIDE 1 GM TABLET PO SCH ×2 (14:23→17:39)
[2020-12-10] MEDS: NON-FORMULARY MEDICATION (Ferric Citrate [Auryxia] 210 mg iron Tablet) PO SCH (17:38)
[2020-12-10] MEDS ORDERED: MIRTAZAPINE 15 MG TABLET PO SCH (21:00)
[2020-12-11 06:59] LABS: Basophils # 0.1 10*3/uL (0.0-0.2); Basophils % 1.1 % (0.0-0.8); Eosinophils # 0.1 10*3/uL (0.0-0.87); Eosinophils % 2.2 % (0.00-10.9); Hemoglobin 10.8 GM/DL (14.0-18.0); Immature Granulocytes % 0.4 %; Immature Granulocytes Absolute 0.02 #; Lymphocytes # 1.3 10*3/uL (1.4-4.0); Lymphocytes % 22.9 % (21.2-54.2); Mean Corpuscular HGB Conc 33.8 GM/DL (32-36); Mean Corpuscular Volume 103.6 FL (87-102); Mean Platelet Volume 10.4 FL (9.6-12.0); Monocytes % 11.7 % (1.7-12.7); Neutrophils % 61.7 % (38.7-73.9); Platelet Count 166 T/CUMM (130-400); Red Blood Count 3.09 MC/CUMM (3.8-5.5); Red Cell Distribution Width 12.8 % (9.3-17.3); White Blood Count 5.5 T/CUMM (4-12)
[2020-12-11 07:23] LABS: Calcium 8.3 MG/DL (8.5-10.1); Osmolality,Calculated 284.1 MOS/KG (273-304); Potassium 3.4 MMOL/L (3.5-5.1)
[2020-12-11] MEDS ORDERED: SODIUM CHLORIDE 0.9% 1,000 ML IV SCH (08:00)
[2020-12-11 08:10] LABS: Folate 17.5 NG/ML (5.38-24.0)
[2020-12-11] MEDS: SODIUM CHLORIDE 1 GM TABLET PO SCH (08:10)
[2020-12-11] MEDS: POTASSIUM CHLORIDE 8 MEQ CAPSULE PO SCH (08:10)
[2020-12-11] MEDS: NON-FORMULARY MEDICATION (Ferric Citrate [Auryxia] 210 mg iron Tablet) PO SCH (08:15)
[2020-12-11] MEDS ORDERED: PANTOPRAZOLE 40 MG TABLET PO SCH (09:00)
[2020-12-11 09:03] LABS: Risk Ratio 1.73; VLDL CHOLESTEROL 16.4 MG/DL
[2020-12-11 09:33] LABS: HIV Antigen/Antibody Result Nonreactive (Nonreactive)
[2020-12-11 11:49] VITALS: BP 120/67
[2020-12-11] MEDS ORDERED: POTASSIUM CHLORIDE 20 MEQ/15 ML UDCUP PO ONE (14:45)
== END 2020-12-11 13:00 | disposition left against medical advice (07) ==
LOC: EDBD → EDUNIT# → N.EDINP 23:32 → N.ED 23:32 → SUATTDRO 12-10 02:34 → N.EDINP 12-10 05:31 → N.3E 12-10 06:14
PROVIDERS: ADMIT Emergency Medicine; ATTEND Internal Medicine